=== PATIENT | male | born 1955 | race Hispanic/Latino ===

== ENCOUNTER → 2017-10-03 | Outpatient (CLI) | payer BC | END | disposition home or self-care (01) | LOC: GMAJ 11:59 | PROVIDERS: ATTEND Family Medicine | DX: Z00.00 Encounter for general adult medical examination without abnormal findings (principal) ==

== ENCOUNTER → 2018-01-11 | Outpatient (CLI) | payer OTHER | LOC: EDSTATUS 08:37 → GMAJ 17:20 | PROVIDERS: ATTEND Family Medicine | DX: L08.9 Local infection of the skin and subcutaneous tissue, unspecified (principal) ==

== ENCOUNTER → 2018-10-29 | Outpatient (CLI) | payer OTHER | LOC: GMAJ 16:47 | PROVIDERS: ATTEND Family Medicine | DX: Z00.00 Encounter for general adult medical examination without abnormal findings (principal) ==

== ENCOUNTER → 2020-11-12 | Outpatient (CLI) | payer OTHER | LOC: GMAJ 10:26 | PROVIDERS: ATTEND Family Medicine | DX: Z12.5 Encounter for screening for malignant neoplasm of prostate (principal) ==